=== PATIENT | female | born 1965 | race Caucasian/White ===

== ENCOUNTER → 2023-12-30 12:49 | Outpatient (REF) | payer OTHER, SELFPAY | LOC: HWRAD 12:49 | PROVIDERS: ATTENDING PHYSICIAN Internal Medicine Critical Care Medicine; FAMILY PHYSICIAN Internal Medicine | DX: R91.1 Solitary pulmonary nodule (principal) | CPT/HCPCS: 71250 ==

== ENCOUNTER → 2024-01-05 12:45 | Outpatient (REF) | payer OTHER, SELFPAY | LOC: HWRAD 12:45 | PROVIDERS: ATTENDING PHYSICIAN Obstetrics & Gynecology Gynecology; FAMILY PHYSICIAN Internal Medicine | DX: R10.2 Pelvic and perineal pain (principal) | CPT/HCPCS: 76830; 76856 ==

== ENCOUNTER → 2024-02-22 12:48 | Outpatient (REF) | payer OTHER, SELFPAY | LOC: WDC 12:48 | PROVIDERS: ATTENDING PHYSICIAN Obstetrics & Gynecology Gynecology; FAMILY PHYSICIAN Internal Medicine | DX: Z12.31 Encounter for screening mammogram for malignant neoplasm of breast (principal) | CPT/HCPCS: 77063; 77067 ==

== ENCOUNTER 2024-03-14 06:20 | Day surgery (SDC) | payer OTHER, SELFPAY | END 2024-03-14 07:57 | disposition home or self-care (01) | LOC: GI 06:20 | PROVIDERS: ATTENDING PHYSICIAN Internal Medicine Gastroenterology | PROC: 0DBM8ZX Excision of Descending Colon, Via Natural or Artificial Opening Endoscopic, Diagnostic (ICD-10-PCS; 2024-03-14) | DX: Z12.11 Encounter for screening for malignant neoplasm of colon (principal); K57.30 Diverticulosis of large intestine without perforation or abscess without bleeding; K64.8 Other hemorrhoids; D12.4 Benign neoplasm of descending colon | CPT/HCPCS: 45380; 88305 ==

== ENCOUNTER 2024-03-15 00:24 | Emergency (ER) | payer OTHER, SELFPAY ==
[2024-03-15 00:26] VITALS: BP 135/71
[2024-03-15 00:41] VITALS: BMI 24.8
--- NOTE | 2024-03-15 00:53 | ED.GENMED ---
History of Present Illness
General
Chief Complaint: Abdominal Pain
Source: patient and spouse
Exam Limitations: none
Time Seen by Provider: 03/15/24 00:32
Nursing documentation reviewed up to this point in time: agreed with
History of Present Illness
History of Present Illness:
Patient is a pleasant 58-year-old female who underwent a colonoscopy yesterday with Dr. Cheema. Patient reports that initially she felt well and was discharged home. The patient reports that she started to develop right-sided abdominal pain at around
8 PM yesterday evening which has now intensified and is radiating towards her left abdomen and up into her right back. Patient says it makes her feel slightly short of breath. Patient describes the pain is intense. Patient reports nausea but no
vomiting. She has not yet had a bowel movement. She denies any bleeding from her rectum. Patient did undergo a polyp resection during the colonoscopy.
Past History
Past History
ED Past Medical History: Other (Mitral valve prolapse, osteoporosis, headaches, compression fractures of T6, T7, T11)
ED Past Surgical History: Other
Social History
Tobacco: Non-smoker
Alcohol: Other
Drug: None
Personal:
Living: with family
Employment: Other
Family History
Family History: Other
Review of Systems
Review of Systems
Allergies reviewed?: Yes
All Other Systems: ROS reviewed and negative except as documented in HPI and ROS
Constitutional: Reports no symptoms
EENT: Reports no symptoms
Respiratory: Reports trouble breathing
Cardiac: Reports no symptoms
ABD/GI: Reports abdominal pain and nausea
: Reports no symptoms
Musculoskeletal: Reports no symptoms
Skin: Reports no symptoms
Neurological: Reports no symptoms
Endocrine: Reports no symptoms
Hematologic/Lymphatic: Reports no symptoms
Psychiatric: Reports no symptoms
Phy Exam
Physical Exam
Physical Exam:
Physical Exam
General: Patient is fully awake, alert but appears slightly uncomfortable
Neck: supple. no meningeal signs. normal psoterior pharynx
Heart: s1/s2 regular rate and rhythm, no murmur. equal radial pulses.
Lungs: no acute respiratory distress. clear bilaterally
Abdomen: Increased bowel sounds. Mildly distended. Right-sided abdominal tenderness
Neuro: alert and oriented. no focal neurological deficits
Skin: no rash
Psychiatric: well kept. interactive and cooperative
Extremities: no edema. no calf tenderness. negative homans. good distal pulses
Course
Orders/Labs/Results
Orders:
Orders
03/15/24 00:53
HYDROmorphone [Dilaudid] 0.5 mg IV NOW STA
Ondansetron Injectable [Zofran] 4 mg IV NOW STA
03/15/24 00:54
CT Abd/pelvis W Iv Cont Urgent
Comment:
Reason For Exam: severe ab pain after colonoscopy
03/15/24 00:55
Complete Blood Count/With Diff Urgent
Lactate Level [Lactic Acid] Urgent
03/15/24 01:36
Comprehensive Metabolic Panel Urgent
Comment: REDRAW
Lipase Urgent
03/15/24 01:39
Piperacillin/Tazo 4.5 Gram [Zosyn] 4.5 gram in 100 ml IV NOW
03/15/24 01:53
US Abdomen Complete/Upper Urgent
Comment:
Reason For Exam: R sided abdominal pain
03/15/24 02:18
0.9% Sodium Chloride 1000 ml [Nss] 1,000 ml IV BOLUS
Abnormal Lab Results
03/15/24 03/15/24
00:55 01:36
WBC 12.4 H 10^3/uL
(4.8-10.8)
MCHC 32.3 L g/dL
(33.0-37.0)
Abs Immat Gran (auto) 0.1 H 10^3/uL
(0-0.05)
Absolute Neuts (auto) 9.6 H 10^3/uL
(1.4-6.5)
Absolute Monos (auto) 0.7 H 10^3/uL
(0.1-0.6)
Neutrophils % 77.3 H %
(42.2-75.2)
Lymphocytes % 15.1 L %
(20.5-51.1)
BUN 18 H mg/dl
(7-17)
Glucose 104 H mg/dl
(70-99)
03/15/24 00:55
03/15/24 01:36
Vital Signs
Initial and Last Documented VS:
Initial Vital Signs
Temp Pulse Resp BP Pulse Ox
98.5 F 78 18 135/71 99
03/15/24 00:26 03/15/24 00:26 03/15/24 00:26 03/15/24 00:26 03/15/24 00:26
Last Documented Vital Signs
Temp Pulse Resp BP Pulse Ox
98.5 F 78 18 130/80 97
03/15/24 00:26 03/15/24 00:26 03/15/24 00:26 03/15/24 02:00 03/15/24 02:15
MDM/Problems Addressed
Differential Diagnosis Includes:
Acute bowel perforation, ischemic colitis, acute diverticulitis
MDM/Problems Addressed:
Patient presents with acute abdominal pain after colonoscopy
Acute Exacerbation and/or Progression of Chronic Illness:
Patient is acutely hypertensive, however, she is extremely uncomfortable
*Radiology
Radiology exam reviewed: radiology read reviewed
*Pulse Oximetry
Patient hypoxic: no
*EKG
Interpreted by ED Provider?: NA
*Chefs Interpretation
Rate: normal
Interpretation: normal
Rhythm: sinus
*Critical Care Note
Total Time (30-74mins, 75-104mins- exclusive of procedures): Not Applicable
Data Reviewed
Review of Other/Old Records Reveals: Operative Reports (Colonoscopy report reviewed from yesterday which showed polyp in descending colon)
Source: patient
Patient Management
Discussion with other providers: Other (Spoke to Dr. Chase from colorectal who reviewed the CAT scan and does not see sign of bowel perforation)
Update Note
Update Note:
3 AM patient's ultrasound shows nonmobile gallstones but no gallbladder wall thickening or pericholecystic fluid. Patient states that her pain and nausea are completely gone and she adamantly wants to go home. She is drinking fluids without
difficulty. Patient told to return immediately with any recurrence of pain, vomiting or fever.
ED Attending Note
-
Portions of this chart may have been created with voice recognition software.� Occasional wrong word or��sound alike� substitutions may have occurred due to the inherent limitations of voice recognition software.
Discharge Plan
Departure
Patient Disposition: Home (Routine Discharge)
Date of Disposition: 03/15/24
Time of Disposition: 03:04
Patient with high blood pressure during this ER visit?: Yes
Condition: Good
Discharge Problem:
Right sided abdominal pain, Gallstone
Instructions: Gallstones ED, Abdominal Pain, BLOOD PRESSURE
Prescriptions:
No Action
nortriptyline 25 MG capsule
25 mg PO HS
hydrocodone-acetaminophen [Vicodin] 1 EACH tablet
1 ea PO Q6H PRN (Reason: pain) Qty: 20 0RF
albuterol sulfate [Proventil HFA] 90 MCG/PUFF HFA aerosol inhaler
1 puff inhalation Q4HPRN PRN (Reason: shortness of breath) Qty: 1 0RF
doxycycline hyclate 100 MG capsule
100 mg PO Q12 Qty: 14 0RF
Referrals:
Gus Butterfield MD [Active] - (Follow-up with general surgery to discuss your gallstone and possibly removal of your gallbladder in the future)
Kim Beard MD [Family Provider] -
Activity Restrictions/Additional Instructions:
Is very important that you return immediately with any worsening pain, vomiting or any fever!!!
Interventions
Interventions:
*Risk Screen - Suicide Last Done: 03/15/24 00:29
*General Assessment Last Done: 03/15/24 00:29
*Neglect/Abuse Screening Last Done: 03/15/24 00:29
ED- Fall Risk Assessment Last Done: 03/15/24 00:41
*ED COVID-19 Vaccine History Last Done: 03/15/24 00:29
[place] Assessment Last Done: 03/15/24 00:41
Discharge Date and Time
Print Language: SAO TOMEAN
[2024-03-15] MEDS: DILAUDID 0.5 MG IV (00:59)
[2024-03-15] MEDS: ZOFRAN 4 MG IV (00:59)
[2024-03-15 01:29] LABS: % Basophils 0.3 % (0-2); % Eosinophils 1.3 % (0-6); % Immature Granulocytes 0.5 % (0-0.5); % Lymphocytes 15.1 % (20.5-51.1); % Monocytes 5.5 % (1.7-9.3); % Neutrophils 77.3 % (42.2-75.2); Absolute Eosinophils 0.2 10^3/uL (0-0.7); Absolute Immature Granulocytes 0.1 10^3/uL (0-0.05); Absolute Lymphocytes 1.9 10^3/uL (1.2-3.4); Absolute Monocytes 0.7 10^3/uL (0.1-0.6); Absolute Neutrophils 9.6 10^3/uL (1.4-6.5); Hematocrit 45.2 % (37.0-47.0); Hemoglobin 14.6 g/dL (12.0-16.0); Mean Corp Hgb Conc. 32.3 g/dL (33.0-37.0); Mean Platelet Volume 10.2 fL (7.4-10.4); Nucleated Red Blood Cells % 0 %; Platelet Count 276 10^3/uL (130-400); Red Blood Cell Count 4.86 10^6/uL (4.20-5.40); Red Cell Dist. Width 13.3 % (11.5-14.5); White Blood Cell Count 12.4 10^3/uL (4.8-10.8)
[2024-03-15 01:36] LABS: Lactic Acid 1.6 mmol/L (0.7-2.0)
[2024-03-15 01:37] VITALS: BP 117/62
[2024-03-15 01:57] LABS: ALT (SGPT) 28 U/L (0-35); AST (SGOT) 28 U/L (14-36); Albumin 4.4 g/dl (3.5-5.0); Alkaline Phosphatase 80 U/L (38-126); Blood Urea Nitrogen 18 mg/dl (7-17); Calcium 8.8 mg/dl (8.4-10.2); Carbon Dioxide 23 mmol/L (22-30); Chloride 106 mmol/L (98-107); Estimated Creatinine Clearance 78 ml/min; Glucose 104 mg/dl (70-99); Lipase 175 U/L (23-300); Potassium 4.2 mmol/L (3.5-5.1); Sodium 140 mmol/L (135-145); Total Bilirubin 0.3 mg/dl (0.2-1.3); Total Protein 6.5 g/dl (6.3-8.2); eGFR > 60.00
[2024-03-15 02:00] VITALS: BP 130/80
[2024-03-15] MEDS: NSS 1000 IV (02:20)
== END 2024-03-15 03:44 | disposition home or self-care (01) ==
LOC: EMR 00:24
PROVIDERS: EMERGENCY PHYSICIAN Emergency Medicine; FAMILY PHYSICIAN Internal Medicine
DX: K80.20 Calculus of gallbladder without cholecystitis without obstruction (principal); R03.0 Elevated blood-pressure reading, without diagnosis of hypertension
CPT/HCPCS: 96374; 96375; 99284; 74177; 76700; 80053; 83605; 83690; 85025; Q9967